=== PATIENT | female | born 1950 | race Caucasian/White ===

== ENCOUNTER 2024-07-18 09:35 | Day surgery (SDC) | payer MEDICARE, BC ==
[~2024-07-18] VITALS: Ht 160 cm; Wt 73.5 kg
[~2024-07-18 09:35] MED LIST: ATOR1TAB21 PO; CLOP75TA2 PO; ECOT81TA5 PO; FOSI10TA44 PO; FURO20TA2 PO; LEVO25TA5 PO; METO1TAB32 PO; MIDAZOLAM INJ 2MG/2ML VIAL As Ordered ONE; PANT40TA29 PO; PHENYLEPHRINE 10% OPHTH SOL 5ML OS PRN; TRAZ-252 PO; fentaNYL 100 MCG/2 ML INJECTION As Ordered ONE
[2024-07-18] MEDS: ATROPINE SULFATE 1% OPHTH SOLN 2ML BTL OS SCH (09:54)
[2024-07-18] MEDS: TROPICAMIDE 1% OPHTH SOLN 15ML OS SCH (09:54)
[2024-07-18] MEDS: OFLOXACIN 0.3 % (OCUFLOX) OPTH SOL 5ML OS ONE (09:54)
[2024-07-18] MEDS: PHENYLEPHRINE 2.5% OPHTH SOL 2ML OS SCH (09:54)
[2024-07-18] MEDS: LIDOCAINE 3.5 % 1ML OPHTH TOPICAL GEL OU ONE (09:55)
[2024-07-18] MEDS: LIDOCAINE 1% SDV 5ML VIAL As Ordered ONE (11:02)
[2024-07-18] MEDS: BSS IRRIG/VANCO(10MG)/TOBRA(5MG)/EPINEPH(1:1000-0.5CC)500ML BAG-ORONLY As Ordered ONE (11:05)
[2024-07-18] MEDS: CEFUROXIME 1MG/0.1ML INTRACAMERAL INJ As Ordered ONE (11:15)
[2024-07-18 11:23] VITALS: BP 159/80; TEMP 96.9; O2SAT 96
== END 2024-07-18 11:48 | disposition home or self-care (01) ==
LOC: M SDC 09:35
PROVIDERS: ATTEND Ophthalmology
DX: H25.12 Age-related nuclear cataract, left eye (principal); Z88.5 Allergy status to narcotic agent; Z88.8 Allergy status to other drugs, medicaments and biological substances
CPT/HCPCS: 66984; 92015; J0697; J2250; J3010; V2632

== ENCOUNTER 2024-07-25 08:29 | Day surgery (SDC) | payer MEDICARE, BC ==
[~2024-07-25] VITALS: Ht 160 cm; Wt 72.6 kg
[~2024-07-25 08:29] MED LIST changes: +PHENYLEPHRINE 10% OPHTH SOL 5ML OD PRN; -PHENYLEPHRINE 10% OPHTH SOL 5ML OS PRN
[2024-07-25] MEDS: LIDOCAINE 3.5 % 1ML OPHTH TOPICAL GEL OU ONE (09:09)
[2024-07-25] MEDS: OFLOXACIN 0.3 % (OCUFLOX) OPTH SOL 5ML OD ONE (09:09)
[2024-07-25] MEDS: ATROPINE SULFATE 1% OPHTH SOLN 2ML BTL OD SCH (09:10)
[2024-07-25] MEDS: PHENYLEPHRINE 2.5% OPHTH SOL 2ML OD SCH (09:10)
[2024-07-25] MEDS: TROPICAMIDE 1% OPHTH SOLN 15ML OD SCH (09:10)
[2024-07-25] MEDS: LIDOCAINE 1% SDV 5ML VIAL As Ordered ONE (10:05)
[2024-07-25] MEDS: BSS IRRIG/VANCO(10MG)/TOBRA(5MG)/EPINEPH(1:1000-0.5CC)500ML BAG-ORONLY As Ordered ONE (10:05)
[2024-07-25] MEDS: CEFUROXIME 1MG/0.1ML INTRACAMERAL INJ As Ordered ONE (10:15)
[2024-07-25 10:24] VITALS: BP 158/85; TEMP 97.2; O2SAT 97
== END 2024-07-25 10:55 | disposition home or self-care (01) ==
LOC: M SDC 08:29 → EDUNIT# 12:30
PROVIDERS: ATTEND Ophthalmology
DX: H25.11 Age-related nuclear cataract, right eye (principal); H52.221 Regular astigmatism, right eye; I48.91 Unspecified atrial fibrillation; I25.2 Old myocardial infarction; Z98.61 Coronary angioplasty status; E78.5 Hyperlipidemia, unspecified; I10 Essential (primary) hypertension; E03.9 Hypothyroidism, unspecified; Z95.0 Presence of cardiac pacemaker; Z79.82 Long term (current) use of aspirin; Z79.899 Other long term (current) drug therapy; Z88.5 Allergy status to narcotic agent; Z88.8 Allergy status to other drugs, medicaments and biological substances; Z92.3 Personal history of irradiation; Z85.3 Personal history of malignant neoplasm of breast
CPT/HCPCS: 65772; 66982; 92015; J0697; J2250; J3010; V2632